=== PATIENT | female | born 1990 | race Asian ===

== ENCOUNTER 2016-05-27 00:08 | Outpatient (CLI) | payer OTHER | END 2016-05-27 00:10 | disposition short-term general hospital (02) | LOC: AMB 00:08 | DX: R56.9 Unspecified convulsions (principal) | CPT/HCPCS: A0425; A0429 ==

== ENCOUNTER 2016-05-28 00:14 | Emergency (ER) | payer OTHER ==
[~2016-05-28] VITALS: Ht 170.2 cm; Wt 54.4 kg
[2016-05-28 01:01] VITALS: BP 130/66; TEMP 98.1
== END 2016-05-28 01:00 | disposition home or self-care (01) ==
LOC: ED 00:14
DX: F41.8 Other specified anxiety disorders (principal); F19.10 Other psychoactive substance abuse, uncomplicated
CPT/HCPCS: 99282

== ENCOUNTER 2017-01-18 20:03 | Emergency (ER) | payer OTHER ==
[~2017-01-18] VITALS: Ht 170.2 cm; Wt 53.5 kg
[2017-01-18 22:06] LABS: PLATELET COUNT 223 K/uL (152-353)
[2017-01-18 22:42] VITALS: BP 115/82; TEMP 98.8
[2017-01-18 23:16] LABS: POTASSIUM 4.2 mmol/L (3.6-5.2); SODIUM 136 mmol/L (136-145)
== END 2017-01-18 22:47 | disposition home or self-care (01) ==
LOC: ED 20:03
PROVIDERS: Specialist
DX: R10.84 Generalized abdominal pain (principal)
CPT/HCPCS: 36415; 80048; 81000; 81025; 85027; 99283

== ENCOUNTER 2017-05-21 10:15 | Emergency (ER) | payer OTHER ==
[~2017-05-21] VITALS: Ht 170.2 cm; Wt 54.4 kg
[2017-05-21 11:08] LABS: PLATELET COUNT 251 K/uL (152-353)
[2017-05-21 11:23] LABS: POTASSIUM 3.6 mmol/L (3.6-5.2)
[2017-05-21 12:40] VITALS: BP 114/71; TEMP 98
== END 2017-05-21 12:40 | disposition home or self-care (01) ==
LOC: ED 10:15
PROVIDERS: Family Medicine
DX: D50.8 Other iron deficiency anemias (principal); N39.0 Urinary tract infection, site not specified
CPT/HCPCS: 36415; 80053; 81000; 81025; 85027; 87086; 87088; 87590; 96372; 99283; J1885

== ENCOUNTER 2017-05-30 11:40 | Outpatient (CLI) | payer OTHER | END 2017-05-30 11:45 | disposition short-term general hospital (02) | LOC: AMB 11:40 | DX: R10.84 Generalized abdominal pain (principal); N39.0 Urinary tract infection, site not specified | CPT/HCPCS: A0425; A0427 ==

== ENCOUNTER 2017-05-30 11:48 | Emergency (ER) | payer OTHER ==
[~2017-05-30] VITALS: Ht 170.2 cm; Wt 55.8 kg
[2017-05-30 11:51] VITALS: TEMP 99.3
[2017-05-30 12:54] LABS: PLATELET COUNT 524 K/uL (152-353)
[2017-05-30 12:59] LABS: POTASSIUM 3.2 mmol/L (3.6-5.2)
[2017-05-30 15:55] VITALS: BP 124/84
== END 2017-05-30 15:55 | disposition home or self-care (01) ==
LOC: ED 11:48
PROVIDERS: Specialist
DX: N73.8 Other specified female pelvic inflammatory diseases (principal)
CPT/HCPCS: 80048; 81000; 81025; 85027; 87210; 87490; 87590; 96365; 99284; J1580; J3490

== ENCOUNTER 2017-08-06 07:21 | Emergency (ER) | payer OTHER ==
[~2017-08-06] VITALS: Ht 170.2 cm; Wt 49.9 kg
[2017-08-06 07:25] VITALS: BP 125/83; TEMP 98.1
== END 2017-08-06 07:55 | disposition home or self-care (01) ==
LOC: ED 07:21
DX: H92.01 Otalgia, right ear (principal)
CPT/HCPCS: 99282

== ENCOUNTER 2018-02-10 07:33 | Emergency (ER) | payer OTHER ==
[~2018-02-10] VITALS: Ht 170.2 cm; Wt 45.4 kg
[2018-02-10 08:03] VITALS: BP 122/83; TEMP 98.1
== END 2018-02-10 08:30 | disposition home or self-care (01) ==
LOC: ED 07:33
DX: J01.80 Other acute sinusitis (principal)
CPT/HCPCS: 99281

== ENCOUNTER 2018-05-09 12:47 | Emergency (ER) | payer OTHER ==
[~2018-05-09] VITALS: Ht 170.2 cm; Wt 56.7 kg
[2018-05-09 14:20] VITALS: BP 128/84; TEMP 98.5
== END 2018-05-09 14:20 | disposition home or self-care (01) ==
LOC: ED 12:47
DX: K08.89 Other specified disorders of teeth and supporting structures (principal)
CPT/HCPCS: 87651; 99282

== ENCOUNTER 2018-08-16 20:36 | Emergency (ER) | payer OTHER ==
[~2018-08-16] VITALS: Ht 170.2 cm; Wt 49.9 kg
[2018-08-16 21:10] VITALS: BP 98/68; TEMP 98.5
== END 2018-08-16 21:10 | disposition home or self-care (01) ==
LOC: ED 20:36
DX: Z48.02 Encounter for removal of sutures (principal)

== ENCOUNTER 2021-06-15 13:34 | Emergency (ER) | payer OTHER ==
[~2021-06-15] VITALS: Ht 170.2 cm; Wt 49.9 kg
[2021-06-15 13:45] VITALS: BP 133/90; TEMP 98.9
== END 2021-06-15 14:50 | disposition home or self-care (01) ==
LOC: ED 13:34
DX: M62.838 Other muscle spasm (principal)
CPT/HCPCS: 96372; 99282; J1885